=== PATIENT | male | born 1960 | race Caucasian/White ===

== ENCOUNTER 2021-01-21 17:12 | Observation (INO) ==
[2021-01-21] MEDS ORDERED: Nitroglycerin 0.4 MG TAB.SUBL SL PRN (17:32)
[2021-01-21] MEDS ORDERED: Aspirin 325 MG TABLET PO ONE (17:32)
[2021-01-21 18:06] LABS: Hematocrit 35.6 % (37.5-50.1); Hemoglobin 11.7 g/dL (12.9-16.9); Mean Corpuscular HGB Conc 32.9 g/dL (31.6-35.5); Mean Corpuscular Hemoglobin 32.2 pg (28.0-33.3); Mean Corpuscular Volume 98.1 fL (83.0-100.0); Mean Platelet Volume 11.1 fL (9.4-12.4); Platelet Count 151 K/mcL (140-400); Red Blood Count 3.63 M/mcL (4.19-5.50); Red Cell Distribution Width 12.8 % (11.5-14.5); White Blood Count 3.7 K/mcL (4.3-11.1)
[2021-01-21 18:15] LABS: INR 1.1; Prothrombin Time 11.7 Seconds (9.4-12.1)
[2021-01-21 18:17] LABS: Activated Partial Thrombo Time 33.3 Seconds (26.0-36.0)
[2021-01-21 18:21] LABS: Lymphocytes # 2.5 K/mcL (0.6-4.6); Monocytes # 0.4 K/mcL (0.0-1.3); Neutrophils # 0.7 K/mcL (1.6-8.9)
[2021-01-21 18:30] LABS: BUN/Creatinine Ratio 14 (6-26); Blood Urea Nitrogen 17 mg/dL (6-20); Calcium 8.6 mg/dL (8.6-10.3); Carbon Dioxide 29 mEq/L (23-29); Chloride 101 mEq/L (98-107); Glucose 101 mg/dL (70-105); Osmolality,Calculated 282 (280-300); Potassium 4.2 mEq/L (3.5-5.1); Sodium 135 mEq/L (136-145); Troponin I 0.03 ng/mL (< 0.04); eGFR For African Americans > 60 (> 60); eGFR For Non-African Americans > 60 (> 60)
[2021-01-21] MEDS ORDERED: Isovue-370 500 ML BOTTLE IVP ONE (18:59)
[2021-01-21 20:29] LABS: Influenza A PCR Negative (Negative); Influenza B PCR Negative (Negative); Resp. Syncytial Virus PCR Negative (Negative)
[2021-01-21 20:33] LABS: SARS-CoV-2 by PCR (In House) Positive (Negative)
[2021-01-21] MEDS ORDERED: *HR* FentaNYL (PF) 100 MCG/2 ML VIAL IVP STA (22:03)
[2021-01-21] MEDS ORDERED: Naloxone 0.4 MG/ML INJ IVP PRN (22:35)
[2021-01-21] MEDS ORDERED: Melatonin 3 MG TABLET PO PRN (22:35)
[2021-01-21] MEDS ORDERED: *HR* HYDROcodone/Acet 5/325 mg TABLET PO PRN (22:35)
[2021-01-21] MEDS ORDERED: Ondansetron 4 MG/2 ML VIAL IVP PRN (22:35)
[2021-01-21] MEDS ORDERED: Acetaminophen 325 MG TABLET PO PRN (22:35)
[2021-01-21] MEDS ORDERED: Perflutren Lipid Microsphere 1.3 ML in 0.9 % Sodium Chloride 8.7 ML IVP PRN (22:37)
[2021-01-22 00:16] VITALS: PULSE 77
[2021-01-22 00:35] LABS: Basophils % 0.7 %; Eosinophils # 0.1 K/mcL (0.0-0.6); Eosinophils % 2.6 %; Hematocrit 38.4 % (37.5-50.1); Hemoglobin 12.2 g/dL (12.9-16.9); Immature Granulocytes % 0.4 % (0-4); Lymphocytes # 1.4 K/mcL (0.6-4.6); Lymphocytes % 52.2 %; Mean Corpuscular HGB Conc 31.8 g/dL (31.6-35.5); Mean Corpuscular Hemoglobin 31.4 pg (28.0-33.3); Mean Platelet Volume 10.5 fL (9.4-12.4); Monocytes # 0.4 K/mcL (0.0-1.3); Monocytes % 14.2 %; Neutrophils # 0.8 K/mcL (1.6-8.9); Platelet Count 136 K/mcL (140-400); Red Blood Count 3.88 M/mcL (4.19-5.50); Red Cell Distribution Width 13.1 % (11.5-14.5); Segmented Neutrophils % 29.9 %; White Blood Count 2.7 K/mcL (4.3-11.1)
[2021-01-22 00:50] LABS: Prothrombin Time 11.6 Seconds (9.4-12.1)
[2021-01-22 00:54] LABS: Iron 41 mcg/dL (65-175)
[2021-01-22 00:55] LABS: Alanine Aminotransferase 49 Units/L (7-52); Albumin 3.5 g/dL (3.5-5.7); Albumin/Globulin Ratio 1.1 (1.1-2.2); Alkaline Phosphatase 68 Units/L (34-104); Aspartate Amino Transferase 71 Units/L (13-39); BUN/Creatinine Ratio 12 (6-26); Bilirubin,Total 0.3 mg/dL (0.3-1.0); Blood Urea Nitrogen 14 mg/dL (6-20); Calcium 8.2 mg/dL (8.6-10.3); Carbon Dioxide 31 mEq/L (23-29); Chloride 101 mEq/L (98-107); Cholesterol 150 mg/dL (< 200); Globulin 3.1 g/dL (2.4-3.5); Glucose 115 mg/dL (70-105); HDL Cholesterol 25 mg/dL (40-59); LDL Cholesterol,Calculated 103 mg/dL (< 100); Osmolality,Calculated 283 (280-300); Sodium 136 mEq/L (136-145); Total Protein 6.6 g/dL (6.4-8.9); Triglycerides 109 mg/dL (< 150); eGFR For African Americans > 60 (> 60); eGFR For Non-African Americans > 60 (> 60)
[2021-01-22 00:57] LABS: % Iron Saturation 13 % (20-55); Transferrin 222 mg/dL (203-362)
[2021-01-22 01:19] LABS: Folate 15.8 ng/mL (3.0-16.0)
[2021-01-22 03:09] VITALS: BP 121/77; TEMP 98.2; O2SAT 96
[2021-01-22] MEDS ORDERED: Ketorolac 15 MG/ML VIAL IVP PRN (04:51)
[2021-01-22] MEDS ORDERED: *HR* Enoxaparin 40 MG/0.4 ML SYRINGE SQ SCH (06:00)
== END 2021-01-22 05:40 | disposition left against medical advice (07) ==
LOC: 3BNU 17:12 → EMEROOARM 17:12 → 3BNU 23:56
PROVIDERS: ADMIT Internal Medicine; ATTEND Internal Medicine